=== PATIENT | female | born 1955 | race Caucasian/White ===

== ENCOUNTER 2016-12-02 21:43 | Emergency (ER) | payer OTHER ==
--- NOTE | 2016-12-02 22:47 | NUR ---
PER CARE EMT, PT NO LONGER WANTED TO BE SEEN AND LEFT PRIOR TO SIGNING AMA FORM. PT WAS NOT TRIAGED. PT WAS STILL ON EMT GURNEY
== END 2016-12-02 22:47 | disposition left against medical advice (07) ==
LOC: SED 21:43
DX: R10.9 Unspecified abdominal pain (principal); Z53.21 Procedure and treatment not carried out due to patient leaving prior to being seen by health care provider

== ENCOUNTER 2017-10-27 21:08 | Emergency (ER) | payer OTHER ==
[~2017-10-27] VITALS: Ht 162.6 cm; Wt 65.8 kg
[2017-10-27 21:10] VITALS: BP_SYST 119
[2017-10-27] MEDS ORDERED: ONDANSETRON HCL 4 MG/2 ML VIAL IVP ONE (21:15)
[2017-10-27] MEDS ORDERED: NACL 0.9% 1,000 ML IV ONE (21:15)
[2017-10-27] MEDS ORDERED: MORPHINE 4 MG/ML INJ. SYRINGE IVP ONE (21:15)
[2017-10-27 21:42] LABS: BASOPHILS # (AUTO) 0.1 K/uL (0.0-0.2); BASOPHILS % (AUTO) 0.8 % (0.0-2.0); EOSINOPHILS # (AUTO) 0.2 K/uL (0.0-0.4); EOSINOPHILS % (AUTO) 1.9 % (0.0-4.0); HEMATOCRIT 41.9 % (36-48); HEMOGLOBIN 14.2 g/dL (12.0-16.0); LYMPHOCYTES # (AUTO) 4.2 K/uL (1.0-5.5); LYMPHOCYTES % (AUTO) 35.6 % (20.5-51.5); MEAN CORPUSCULAR HEMOGLOBIN 30 pg (27-31); MEAN CORPUSCULAR HGB CONC 34 % (32-36); MEAN CORPUSCULAR VOLUME 88 fL (79.0-98.0); MONOCYTES # (AUTO) 0.9 K/uL (0.0-1.0); MONOCYTES % (AUTO) 7.3 % (1.7-9.3); NEUTROPHILS # (AUTO) 6.3 K/uL (1.8-7.7); NEUTROPHILS % (AUTO) 54.4 % (40.0-70.0); PLATELET COUNT (AUTO) 323 K/uL (130-430); RED BLOOD CELL COUNT(AUTO) 4.77 MIL/uL (4.2-6.2); RED CELL DISTRIBUTION WIDTH 13.6 % (9.0-15.0); WHITE BLOOD COUNT (AUTO) 11.7 K/uL (4.8-10.8)
[2017-10-27 21:52] LABS: CALCIUM 9.3 mg/dL (8.4-11.0); CREATININE 1.06 mg/dL (0.55-1.30); POTASSIUM 4.5 mmol/L (3.5-5.1)
[2017-10-27 21:56] LABS: ALBUMIN 3.7 g/dL (3.4-4.8); TOTAL BILIRUBIN 0.4 mg/dL (0.0-1.0)
[2017-10-27 22:16] LABS: BILIRUBIN,URINE NEGATIVE (NEGATIVE); BLOOD, URINE NEGATIVE (NEGATIVE); CLARITY/URINE HAZY (CLEAR); COLOR,URINE YELLOW (YELLOW); GLUCOSE,URINE NEGATIVE (NEGATIVE); KETONES,URINE NEGATIVE (NEGATIVE); LEUKOCYTE ESTERASE ,URINE NEGATIVE (NEGATIVE); NITRITE, URINE NEGATIVE (NEGATIVE); PROTEIN URINE TRACE (NEGATIVE); UROBILINOGEN,URINE 0.2 (0.2-1.0)
[2017-10-27 23:19] VITALS: BP_SYST 117
[2017-10-28] MEDS ORDERED: LIDOCAINE 1%, 20 ML MDV 20 ML ONE (04:57)
== END 2017-10-27 23:19 | disposition home or self-care (01) ==
LOC: SED 21:08
DX: K45.8 Other specified abdominal hernia without obstruction or gangrene (principal); Z90.49 Acquired absence of other specified parts of digestive tract
CPT/HCPCS: 36415; 74176; 80053; 81003; 83690; 85025; 96361; 96374; 96375; 99285; J2270; J2405; J7030; J2001

== ENCOUNTER 2017-11-26 08:28 | Day surgery (SDC) | payer OTHER ==
[~2017-11-26] VITALS: Ht 162.6 cm; Wt 67.1 kg
[2017-11-26] MEDS ORDERED: CEFAZOLIN SOD 1 GM/ ISO 50 ML PREMIX IV ONE (09:45)
[2017-11-26] MEDS ORDERED: ROCURONIUM BROMIDE 10 MG/ML (ZEMURON) IV ONE (11:30)
[2017-11-26] MEDS ORDERED: NEOSTIGMINE METHYLSULFATE 1 MG/ML, 10 ML VIAL IVP ONE (11:30)
[2017-11-26] MEDS ORDERED: LR 1,000 ML IV.SOLN IV ONE (11:30)
[2017-11-26] MEDS ORDERED: BUPIVACAINE /EPINEPHRINE/PF 0.25% 30 ML VIAL INJ ONE (11:30)
[2017-11-26] MEDS ORDERED: PROPOFOL 200MG/ 20ML VIAL (DIPRIVAN) IV ONE (11:30)
[2017-11-26] MEDS ORDERED: MIDAZOLAM HCL 5 MG/5 ML VIAL IVP ONE (11:30)
[2017-11-26] MEDS ORDERED: GLYCOPYRROLATE 0.2 MG/ML VIAL IJ ONE (11:30)
[2017-11-26] MEDS ORDERED: ONDANSETRON HCL 4 MG/2 ML VIAL IVP ONE (11:30)
[2017-11-26] MEDS ORDERED: SEVOFLURANE 15 MIN GAS INH ONE (11:30)
[2017-11-26] MEDS ORDERED: fentaNYL CITRATE 250 MCG/5 ML AMP IV ONE (11:30)
[2017-11-26] MEDS ORDERED: POLYMYXIN 500,000/BACIT.10,000 UNITS in NS IRR 1 L IR ONE (11:31)
[2017-11-26] MEDS ORDERED: BUPIVACAINE LIPOSOME/PF 266 MG/20 ML VIAL INFIL ONE (11:34)
[2017-11-26] MEDS ORDERED: LR 1,000 ML IV SCH (12:22)
[2017-11-26] MEDS ORDERED: MORPHINE 4 MG/ML INJ. SYRINGE IVP PRN ×3 (12:30)
[2017-11-26] MEDS ORDERED: METOCLOPRAMIDE HCL 10 MG/2 ML VIAL IVP PRN (12:30)
[2017-11-26] MEDS ORDERED: HYDROcodone/ACETAMIN 5-325 MG TAB (NORCO/ VICODIN) ONE (13:54)
[2017-11-26] MEDS: METOCLOPRAMIDE HCL 10 MG/2 ML VIAL ONE ×2 (14:07→14:10)
[2017-11-26] MEDS ORDERED: HYDROcodone/ACETAMIN 5-325 MG TAB (NORCO/ VICODIN) PO PRN ×2 (15:30)
--- NOTE | 2017-11-26 15:40 | NUR ---
POST OP ADMIT FOR OBSERVATION. PT S/P LAPAROSCOPY VENTRAL HERNIA REPAIR BY DR MIGUELANGEL BALDERAS. AAO X4, NO S/S OF ACUTE DISTRESS. PT C/O PAIN, WILL ADMINISTER PAIN MEDICATION. PT ORIENTED TO ROOM AND USE OF CALL LIGHT. AT BEDSIDE. WILL FOLLOW UP
[2017-11-26 15:42] VITALS: BP_SYST 149
[2017-11-26 15:44] VITALS: BP_SYST 149
[2017-11-26] MEDS: HYDROmorphone 1 MG INJ. 1 MG/ML AMPUL IVP PRN ×2 (15:59→22:28)
--- NOTE | 2017-11-26 16:15 | NUR ---
DR SHERRIE CAMPOS, PT REQUESTING TATUM AND GURMEET. AWAITING CALL BACK
--- NOTE | 2017-11-26 18:15 | NUR ---
PAIN MANAGEMENT PT C/O PAIN TO ABD, ADMINISTERED PAIN MEDICATION PER SCALE. PT TOLERATED WELL. AT BEDSIDE. PT TOLERATING CLEAR LIQUID DIET WELL. WILL ADVANCE TOLERATED.
[2017-11-26] MEDS: D5/0.45 NS 1,000 ML IV SCH ×2 (18:20→22:48)
--- NOTE | 2017-11-26 18:48 | NUR ---
CLOSING NOTE PT SITTING UP IN BED, AT BEDSIDE. NO S/S OF ACUTE DISTRESS OR PAIN. IVF INFUSING TO LEFT HAND AT ORDERED RATE. BREATHING EVEN AND UNLABORED. ALL NEEDS ATTENDED TO DURING STAY. SAFETY PRECAUTIONS MAINTAINED. WILL GIVE REPORT TO FOLLOWING SHIFT
--- NOTE | 2017-11-26 19:30 | NUR ---
OPENING NOTE RECEIVED PT AND REPORT FROM DAY SHIFT NURSE. PT IS SITTING UP AWAKE IN BED. PT ABLE TO MAKE NEEDS. KNOWN. PT ON ROOM AIR. IV INTACT AND RUNNING IVF PER ORDERS. DRESSINGS TO ABDOMEN DRY CLEAN AND INTACT. FALL AND SAFETY PRECAUTIONS IN PLACE. EDUCATED PT ON PLAN OF CARE, PT VERBALIZED UNDERSTANDING. CALL LIGHT WITH PT. WILL CONTINUE TO MONITOR.
--- NOTE | 2017-11-26 19:53 | NUR ---
PAGED I PAGED DR. BALDERAS @ 1952 I SPOKE WITH ARIANA BALDERAS CALLED BACK @ 2015
[2017-11-26 20:00] VITALS: BP_SYST 122
--- NOTE | 2017-11-26 20:19 | NUR ---
DR BALDERAS ORDERS INFORMED DR. BALDERAS OF PT REQUEST FOR AMBIEN AND NAUSEA MEDICATION. RECEIVED NEW ORDERS. WILL FOLLOW THROUGH WITH ORDERS.
[2017-11-26] MEDS ORDERED: ZOLPIDEM TARTRATE 5 MG TABLET PO PRN (20:30)
--- NOTE | 2017-11-26 22:28 | NUR ---
PRN PAIN ASSISTED PT TO BATHROOM. PT STEADY UPON AMBULATION. ADMINISTERED PRN PAIN MEDICATION PER ORDERS. WILL CONTINUE TO MONITOR. CALL LIGHT WITH PT.
[2017-11-26 22:30] VITALS: BP_SYST 132
[2017-11-27] MEDS: ONDANSETRON HCL 4 MG/2 ML VIAL IVP PRN ×2 (00:18→00:20)
--- NOTE | 2017-11-27 00:23 | NUR ---
nausea medicaton ADMINISTERED PRN NAUSEA MEDICATION PER ORDERS. PT RESTING IN BED. WILL CONTINUE TO MONITOR.
--- NOTE | 2017-11-27 01:05 | NUR ---
SLEEPING MEDICATION ADMINISTERED SLEEPING MEDICATION PER ORDERS. ASSISTED PT TO BATHROOM. WILL CONTINUE TO MONITOR.
--- NOTE | 2017-11-27 02:12 | NUR ---
ROUNDING NOTE PT IS SLEEPING IN BED. IVF RUNNING PER ORDERS. CALL LIGHT WITH PT. WILL CONTINUE TO MONITOR.
--- NOTE | 2017-11-27 04:10 | NUR ---
ROUNDING NOTE PT IS SLEEPING AT THIS TIME. NO S/S OF DISTRESS OR DISCOMFORT. CALL LIGHT WITH PT. WILL CONTINUE TO MONITOR.
--- NOTE | 2017-11-27 05:03 | NUR ---
IVF BREAK PT REQUEST TO HAVE A BREAK FROM THE IVF, IN ORDER TO REST SHE IS GETTING UP TO URINATE OFTEN.
--- NOTE | 2017-11-27 06:39 | NUR ---
CLOSING NOTE WILL ENDORSE CARE AND REPORT TO DAY SHIFT. PT IS CURRENTLY SLEEPING IN BED. NO S/S OF DISTRESS OR DISCOMFORT. PT IN STABLE CONDITION. PAIN MANAGED THROUGHOUT SHIFT. ALL NEEDS MET THROUGHOUT SHIFT. NO SIGNIFICANT CHANGES
[2017-11-27 08:30] VITALS: BP_SYST 132
--- NOTE | 2017-11-27 08:44 | NUR ---
AM ROUNDS Patient is awake, alert, and orientedx4. Regular diet consumed this morning and tolerated well. No s/s of distress or SOB, no report of pain. Patient ambulated around hallways and tolerated well. 3 abdominal dressings observed, umbilical area dressing noted with minimal spot of dried blood, all dressings intact. Patient is voiding in bathroom without difficulty. Call light within reach, bed in lowest position, patient oriented to room. Patient informed of discharge today. Discharge education performed. Patient verbalized understanding.
[2017-11-27 09:14] VITALS: BP_SYST 132
--- NOTE | 2017-11-27 10:10 | NUR ---
DISCHARGE: Discharged home in stable condition and with steady gait, accompanied by . Post op instructions given to the patient and verbalized understanding. Per patient, she has prescription pain medication filled prior to her surgery and follow up appointment with Dr. Wakefield is scheduled on December 03. All belongings returned and accounted for.
== END 2017-11-27 10:00 | disposition home or self-care (01) ==
LOC: SDS 08:28 → SMU 08:41 → SDS 11-27 10:00
PROVIDERS: ATTEND Colon & Rectal Surgery
DX: K43.6 Other and unspecified ventral hernia with obstruction, without gangrene (principal); R10.32 Left lower quadrant pain; N73.6 Female pelvic peritoneal adhesions (postinfective); Z98.890 Other specified postprocedural states; Z90.49 Acquired absence of other specified parts of digestive tract; Z80.0 Family history of malignant neoplasm of digestive organs; Z79.899 Other long term (current) drug therapy; Z88.8 Allergy status to other drugs, medicaments and biological substances
CPT/HCPCS: 49329; 49561; 49568; 87081; 88302; C1727; C1781; J0690; J1170; J2250; J2405 ×2; J2704; J2710; J2765; J3010; J3490 ×2; J7120; C9290

== ENCOUNTER 2020-01-22 17:55 | Emergency (ER) | payer OTHER ==
[2020-01-23] MEDS ORDERED: ZOLP10TA2 PO (03:46)
[2020-01-23] MEDS ORDERED: ESCI10TA PO (03:46)
[2020-01-23] MEDS ORDERED: ALEN10TA25 PO (03:47)
== END 2020-01-22 18:00 | disposition left against medical advice (07) ==
LOC: SED 17:55
DX: R55 Syncope and collapse (principal); Z53.21 Procedure and treatment not carried out due to patient leaving prior to being seen by health care provider

== ENCOUNTER 2020-01-22 23:45 | Inpatient (IN) | payer OTHER ==
[~2020-01-22] VITALS: Ht 162.6 cm; Wt 67.1 kg
[2020-01-23 00:01] VITALS: BP_SYST 106
--- NOTE | 2020-01-23 00:55 | NUR ---
Patient to ER bed 5 to gown for evaluation. Side rails up. Report RECEIVED FROM JAKI NAVARRETE.
--- NOTE | 2020-01-23 00:57 | NUR ---
PT A&O X4 FROM HOME C/O OF GENERALIZED WEAKNESS, NAUSEA, VOMITING X2 TODAY, DIARRHEA, AND BURNING/PAIN UPON URINATION. PT REPORTS SYMPTOMS BEGAN LAST SUNDAY. PT DENIES SOB, CHEST PAIN, LOSS OF SENSE OF TASTE/SMELL. PT REPORTS DECREASED APPETITE. PT DENIES FEVER. PT HAS BEEN TAKING TYLENOL AND PYRIDIUM TO HELP SOOTHE SYMPTOMS. WILL CONTINUE TO MONITOR.
--- NOTE | 2020-01-23 01:20 | NUR ---
# 20 gauge angiocath placed to RAC. Use of asceptic technique. Opsite placed over site. Blood return noted. Blood, blood cultures, lactic for lab drawn from site. Flushed with 10 cc of normal saline. No evidence of infiltration noted. Patient tolerated well.
--- NOTE | 2020-01-23 01:24 | NUR ---
ER Dr. Murphy at bedside examining patient.
[2020-01-23] MEDS ORDERED: NACL 0.9% 1,000 ML IV ONE (01:30)
[2020-01-23] MEDS ORDERED: ONDANSETRON HCL 4 MG/2 ML VIAL IVP ONE ×2 (01:30→04:00)
[2020-01-23 01:44] LABS: BASOPHILS % (AUTO) 0.2 % (0.0-2.0); EOSINOPHILS % (AUTO) 0.2 % (0.0-4.0); HEMATOCRIT 43.1 % (36-48); HEMOGLOBIN 14.1 g/dL (12.0-16.0); LYMPHOCYTES # (AUTO) 1.3 K/uL (1.0-5.5); LYMPHOCYTES % (AUTO) 18.4 % (20.5-51.5); MEAN CORPUSCULAR HEMOGLOBIN 29 pg (27-31); MEAN CORPUSCULAR HGB CONC 33 % (32-36); MEAN CORPUSCULAR VOLUME 88 fL (79.0-98.0); MONOCYTES # (AUTO) 0.8 K/uL (0.0-1.0); MONOCYTES % (AUTO) 11.1 % (1.7-9.3); NEUTROPHILS # (AUTO) 4.9 K/uL (1.8-7.7); NEUTROPHILS % (AUTO) 70.1 % (40.0-70.0); PLATELET COUNT (AUTO) 192 K/uL (130-430); RED BLOOD CELL COUNT(AUTO) 4.88 MIL/uL (4.2-6.2); RED CELL DISTRIBUTION WIDTH 14.1 % (9.0-15.0); WHITE BLOOD COUNT (AUTO) 6.9 K/uL (4.8-10.8)
--- NOTE | 2020-01-23 01:47 | NUR ---
RADIOLOGY AT BEDSIDE FOR CHEST XRAY.
--- NOTE | 2020-01-23 01:49 | NUR ---
COVID SWAB COLLECTED AND SENT TO LAB.
[2020-01-23 02:00] LABS: CALCIUM 8.8 mg/dL (8.4-11.0); CREATININE 1.34 mg/dL (0.55-1.30)
--- NOTE | 2020-01-23 02:16 | NUR ---
critical lab reporting - covid positive. aware.
[2020-01-23 02:19] LABS: ALBUMIN 3.6 g/dL (3.4-4.8); TOTAL BILIRUBIN 0.5 mg/dL (0.0-1.0)
[2020-01-23 02:48] LABS: BILIRUBIN,URINE 1+ (NEGATIVE); BLOOD, URINE NEGATIVE (NEGATIVE); CLARITY/URINE CLEAR (CLEAR); COLOR,URINE RED (YELLOW); GLUCOSE,URINE TRACE (NEGATIVE); KETONES,URINE TRACE (NEGATIVE); LEUKOCYTE ESTERASE ,URINE TRACE (NEGATIVE); NITRITE, URINE POSITIVE (NEGATIVE); PROTEIN URINE 1+ (NEGATIVE)
[2020-01-23 02:59] LABS: BACTERIA,URINE MANY /HPF (None Seen); RBC,URINE 0-3 /HPF (0-3); WBC,URINE 20-50 /HPF (0-3)
--- NOTE | 2020-01-23 03:10 | NUR ---
Dr. Murphy at bedside speaking with patient.
[2020-01-23] MEDS ORDERED: cefTRIAXone 1 GM IVPB PREMIX 50 ML IV ONE ×2 (03:15→03:22)
[2020-01-23] MEDS ORDERED: AZITHROMYCIN 250 MG TABLET PO ONE (03:15)
--- NOTE | 2020-01-23 03:30 | NUR ---
patient placed on 2L NC per MD order. pt O2 sat prior to oxygen 90-93%.
--- NOTE | 2020-01-23 03:40 | NUR ---
Blood cultures drawn, prior to administration of antibiotic.
[2020-01-23] MEDS ORDERED: ESCI10TA PO (03:46)
[2020-01-23] MEDS ORDERED: ZOLP10TA2 PO (03:46)
[2020-01-23] MEDS ORDERED: ALEN10TA25 PO (03:47)
--- NOTE | 2020-01-23 03:47 | NUR ---
Medication reconciliation completed with information provided by patient. Any prior medication reconciliation on file was reviewed and corrected.
[2020-01-23 03:48] LABS: C-REACTIVE PROTEIN QUANT 1.9 mg/dL (0-0.5)
--- NOTE | 2020-01-23 03:48 | NUR ---
Patient's code status is full code paperwork completed and placed in chart.
[2020-01-23 03:52] LABS: FIBRINOGEN 457 mg/dL (200-400)
[2020-01-23] MEDS ORDERED: ONDANSETRON HCL 4 MG/2 ML VIAL ONE (03:53)
--- NOTE | 2020-01-23 04:02 | NUR ---
Patient will be admitted to care of Jonathon. Admitted to tele unit. Will go to room 126B. Belongings list completed. Complete and up to date summary report printed. SBAR report to be given at bedside with opportunity for questions.
--- NOTE | 2020-01-23 04:04 | NUR ---
Transfer to TELE via ACLS protocol. Licensed nurse present. IV present no signs or symptoms of infiltration.
--- NOTE | 2020-01-23 04:11 | NUR ---
ADMISSION: The patient, SYMONE ARGUETA, 64 y/o, F admitted by JENNIFER AMOS MD, with the diagnosis of COVID PNEUMONIA to room 126 B , Primary RN at bedside .
--- NOTE | 2020-01-23 04:15 | NUR ---
Opening notes Patient is ambulatory with steady gait to bed. No signs of distress noted. Breathing even and unlabored on 2 L NC. No SOB of noted. IV patent and intact, no signs of infiltration noted. Patient has some nausea, zofran given prior to admission by ER nurse. Vomit bag provided and crackers given. Oriented patient to room and call light. Patient verbalized understanding. No other needs. Call light with the patient. Safety precautions in place.
[2020-01-23 04:50] VITALS: BP_SYST 137
[2020-01-23] MEDS ORDERED: HYDROcodone/ACETAMIN 5-325 MG TAB (NORCO/ VICODIN) PO PRN (06:15)
[2020-01-23] MEDS ORDERED: NALOXONE HCL 0.4 MG/ML AMP (NARCAN) IVP PRN (06:15)
[2020-01-23] MEDS ORDERED: AZITHROMYCIN 500 MG in NS 250 ML IV SCH (06:15)
[2020-01-23] MEDS ORDERED: DEXAMETHASONE SOD PHOSPHATE 10 MG/ML VIAL IVP SCH (06:30)
[2020-01-23] MEDS ORDERED: ZOLPIDEM TARTRATE 5 MG TABLET PO PRN (06:30)
--- NOTE | 2020-01-23 06:48 | NUR ---
CONSULT ID COVID DR DIGGS [id number] S/W KISHOR EXCHANGE
--- NOTE | 2020-01-23 06:48 | NUR ---
Spoke to Dr. Wilder informed Md that patient very nauseated and had already received 8 mg of zofran within the last four hours. New orders received and read back to MD. Will call again to verify orders.
--- NOTE | 2020-01-23 06:53 | NUR ---
HIGH ALERT NOTE: Called Dr. Wilder back at [phone] identified within the medical roster to verify physician authenticity.
[2020-01-23] MEDS ORDERED: DIPHENHYDRAMINE INJ 50 MG/ML VIAL IVP ONE (07:00)
[2020-01-23] MEDS ORDERED: DIPHENHYDRAMINE INJ 50 MG/ML VIAL ONE (07:09)
--- NOTE | 2020-01-23 07:27 | NUR ---
Closing notes Patient resting in bed, patient complaining of nausea. PRN given. Educated the action and side effects of Benadryl. Patient verbalized understanding and tolerated well. Informed patient to call for help when getting up. Patient verbalized understanding. Call light with the patient. Safety precautions in place. Care endorsed to day shift RN.
[2020-01-23 08:00] VITALS: BP_SYST 119
--- NOTE | 2020-01-23 08:00 | NUR ---
A/Ox4, No signs of distress noted. Breathing even and unlabored on 2L NC, saturation at 95%. SR on monitor. Ambulatory. Call light in place, bed locked at the lowest position, will continue to monitor.
[2020-01-23] MEDS: ENOXAPARIN SODIUM 40 MG/0.4 ML SYRINGE SUBCUT SCH (08:14)
[2020-01-23] MEDS: AZITHROMYCIN 500 MG in NS 250 ML IV SCH (08:14)
[2020-01-23] MEDS: CITALOPRAM HYDROBROMIDE 20 MG TABLET PO SCH (08:14)
--- NOTE | 2020-01-23 08:27 | NUR ---
CONSULT PULMONOLOGY COVID DR ZAPATA,JUNIOR BONNER PAGED
[2020-01-23] MEDS ORDERED: ONDANSETRON 4 MG ODT TAB PO PRN (11:15)
[2020-01-23 12:00] VITALS: BP_SYST 139
--- NOTE | 2020-01-23 12:00 | NUR ---
PATIENT IS EATING LUNCH AT THIS TIME. TOLERATING WITHOUT DISTRESS.
--- NOTE | 2020-01-23 14:57 | NUR ---
PATIENT IS SEEN AMBULATING TO THE BATHROOM.
[2020-01-23] MEDS: ASCORBIC ACID 500 MG TABLET PO SCH (15:55)
[2020-01-23] MEDS: CHOLECALCIFEROL (VITAMIN D3) 2,000 UNIT TABLET PO SCH (15:55)
[2020-01-23 16:00] VITALS: BP_SYST 127
--- NOTE | 2020-01-23 16:20 | NUR ---
DR. GALICIA ASSESSED PATIENT AT THIS TIME.
--- NOTE | 2020-01-23 19:50 | NUR ---
REPORT Received report from day nurse, patient is aox4, on room air, Sinus Rhythm in the heart monitor. Call light within reach, fall and isolation precautions in place.
[2020-01-23 20:00] VITALS: BP_SYST 129
--- NOTE | 2020-01-23 22:05 | NUR ---
RN ROUNDS Patient awake, ambulated to bathroom with steady gait, denies any sob, remains on room air, administered sleeping pill, educated on use and side effects of medication, patient verbalized understanding, compliant, updated on plan of care.
--- NOTE | 2020-01-24 01:00 | NUR ---
RN ROUNDS Patient sleeping, remains on room air, vitals stable, call light within reach, fall and safety measures in place.
--- NOTE | 2020-01-24 04:05 | NUR ---
RN ROUNDS Patient continues to sleep, breathing is even and unlabored, remains on room air, call light within reach, fall and safety measures in place.
--- NOTE | 2020-01-24 06:43 | NUR ---
RN ROUNDS Patient continues to sleep, breathing is even and unlabored, remains on room air, needs attended through out the shift, call light within reach, isolation and safety measures maintained through out the shift, will monitor until report given to am nurse.
[2020-01-24 06:49] LABS: BASOPHILS % (AUTO) 0.2 % (0.0-2.0); HEMOGLOBIN 12.5 g/dL (12.0-16.0); LYMPHOCYTES # (AUTO) 1.4 K/uL (1.0-5.5); LYMPHOCYTES % (AUTO) 22.1 % (20.5-51.5); MEAN CORPUSCULAR HEMOGLOBIN 29 pg (27-31); MEAN CORPUSCULAR HGB CONC 34 % (32-36); MEAN CORPUSCULAR VOLUME 87 fL (79.0-98.0); MONOCYTES # (AUTO) 0.7 K/uL (0.0-1.0); MONOCYTES % (AUTO) 11.1 % (1.7-9.3); NEUTROPHILS # (AUTO) 4.3 K/uL (1.8-7.7); NEUTROPHILS % (AUTO) 66.6 % (40.0-70.0); PLATELET COUNT (AUTO) 189 K/uL (130-430); RED BLOOD CELL COUNT(AUTO) 4.27 MIL/uL (4.2-6.2); WHITE BLOOD COUNT (AUTO) 6.4 K/uL (4.8-10.8)
[2020-01-24 07:21] LABS: ALBUMIN 2.8 g/dL (3.4-4.8); CALCIUM 7.9 mg/dL (8.4-11.0); CREATININE 0.88 mg/dL (0.55-1.30); POTASSIUM 3.6 mmol/L (3.5-5.1); TOTAL BILIRUBIN 0.2 mg/dL (0.0-1.0)
--- NOTE | 2020-01-24 08:00 | NUR ---
A/Ox4, No signs of distress noted. Breathing even and unlabored on room air, saturation at 93%. SR on monitor. Ambulatory. Call light in place, bed locked at the lowest position, will continue to monitor.
[2020-01-24] MEDS: CHOLECALCIFEROL (VITAMIN D3) 2,000 UNIT TABLET PO SCH (08:24)
[2020-01-24] MEDS: CITALOPRAM HYDROBROMIDE 20 MG TABLET PO SCH (08:24)
[2020-01-24] MEDS: ASCORBIC ACID 500 MG TABLET PO SCH (08:24)
[2020-01-24 08:30] LABS: C-REACTIVE PROTEIN QUANT 1.9 mg/dL (0-0.5)
[2020-01-24] MEDS: ENOXAPARIN SODIUM 40 MG/0.4 ML SYRINGE SUBCUT SCH (09:00)
[2020-01-24] MEDS: AZITHROMYCIN 500 MG in NS 250 ML IV SCH (09:00)
--- NOTE | 2020-01-24 11:11 | NUR ---
Dr. Peter is at bedside assessing patient.
--- NOTE | 2020-01-24 12:19 | NUR ---
ATTENDING MD CONING MACHINE OPERATOR DR CERVANTES WAS CALLED, RE: TO INFORM THAT PT IS ALLERGIC TO TETRACYCLINE.
[2020-01-24] MEDS ORDERED: VITD2000 PO (12:57)
[2020-01-24] MEDS ORDERED: ASCO500W7 PO (12:57)
[2020-01-24] MEDS ORDERED: APIX2.5T PO (12:58)
[2020-01-24] MEDS ORDERED: ZINC50TA69 PO (12:58)
[2020-01-24 13:02] VITALS: BP_SYST 117
--- NOTE | 2020-01-24 14:30 | NUR ---
D/C Patient Patient given medication reconciliation form and D/C instructions. Exit Care provided. Patient verbalized understanding. MD discussed with patient the results and treatment provided. Ambulatory with steady gait for discharge to home. Patient in stable condition, ID band removed. IV catheter removed, intact and dressing applied, no active bleeding. Rx is given. Patient is educated on warning signs that require immediate return to ER. All belongings sent with patient.
--- NOTE | 2020-01-29 11:44 | NUR ---
Discharge Follow Up Phone Call Pump Mechanic phoned patient, , on 01/27/20, 01/28/20, and 01/29/20 and left voicemail messages with reminder to make follow up appointment, offer of assistance, and Social Service contact information.
== END 2020-01-24 14:25 | disposition home or self-care (01) | DRG 178 ==
LOC: SED 23:45 → STU 01-23 03:42
PROVIDERS: ADMIT Internal Medicine Hospice and Palliative Medicine; ATTEND Internal Medicine Hospice and Palliative Medicine
DX: U07.1 COVID-19 (principal); A08.39 Other viral enteritis; N39.0 Urinary tract infection, site not specified; R79.82 Elevated C-reactive protein (CRP); Z88.1 Allergy status to other antibiotic agents; Z79.899 Other long term (current) drug therapy
CPT/HCPCS: 36415; 36600; 71045; 80053; 81000-TC; 82728; 82803-TC; 83605; 83615-TC; 83690-TC; 83880; 84484; 85025; 85379; 85384-TC; 86140; 87040-TC; 87086; 93005; 96361; 96365; 96375; 96376; 99285; G0378; J0456; J0696; J1100; J1200; J1650; J2405; J7050; J7060; Q0144; Q0162; U0003

== ENCOUNTER 2022-08-01 09:09 | Emergency (ER) | payer OTHER ==
[~2022-08-01] VITALS: Ht 162.6 cm; Wt 68.0 kg
[~2022-08-01 09:09] MED LIST: ALEN10TA25 PO; APIX2.5T PO; ASCO500W7 PO; ESCI10TA PO; VITD2000 PO; ZINC50TA69 PO; ZOLP10TA2 PO
[2022-08-01 09:16] VITALS: BP_SYST 147
[2022-08-01] MEDS ORDERED: BACITRACIN 1 GM OINT TP ONE (09:36)
--- NOTE | 2022-08-01 09:37 | NUR ---
Pt BIB from home. c/o mechanical fall that happened this morning at home. pt states to be going down home stairs when she tripped and "twisted her L foot". pt states no LOC. no bleeding, no open wound noted. swelling noted on L ankle. skin dry and intact. Pt has full ROM of L leg, but states pressure makes ankle pain worse. Pt states pain 5/10. Pt denies N/V/D. afebrile. VSS. AAOX4. Pt in bed with side rails up. at bedside.
--- NOTE | 2022-08-01 09:38 | NUR ---
ER at bedside examining patient.
--- NOTE | 2022-08-01 09:41 | NUR ---
radiology at bedside.
--- NOTE | 2022-08-01 09:41 | NUR ---
elevated L ankle with ice pack.
[2022-08-01] MEDS ORDERED: TRAM50TA2 PO (10:53)
[2022-08-01] MEDS ORDERED: traMADol HCL HCL 50 MG TABLET (ULTRAM) PO ONE (11:00)
--- NOTE | 2022-08-01 11:30 | NUR ---
Patient given written and verbal discharge instructions and verbalizes understanding. ER MD discussed with patient the results and treatment provided. Patient in stable condition. ID arm band removed. Rx of Tramadol given. Patient educated on pain management and to follow up with PMD. Pain Scale 2/10 . Opportunity for questions provided and answered. Medication side effect fact sheet provided.
[2022-08-01 11:31] VITALS: BP_SYST 147
== END 2022-08-01 11:30 | disposition home or self-care (01) ==
LOC: SED 09:09
DX: S92.152A Displaced avulsion fracture (chip fracture) of left talus, initial encounter for closed fracture (principal); Z88.1 Allergy status to other antibiotic agents; Z79.899 Other long term (current) drug therapy; W18.40XA Slipping, tripping and stumbling without falling, unspecified, initial encounter; Y93.89 Activity, other specified; Y92.89 Other specified places as the place of occurrence of the external cause; Y99.8 Other external cause status
CPT/HCPCS: 99284